=== PATIENT | female | born 1945 | race Caucasian/White ===

== ENCOUNTER 2016-11-18 11:05 | Outpatient (CLI) | payer OTHER, MEDICAID | END 2016-11-18 18:18 | disposition home or self-care (01) | LOC: SMA 11:05 | PROVIDERS: ATTEND Family Medicine | DX: Z12.31 Encounter for screening mammogram for malignant neoplasm of breast (principal) | CPT/HCPCS: G0202 ==

== ENCOUNTER 2018-02-06 11:20 | Outpatient (CLI) | payer OTHER, MEDICAID | END 2018-02-06 20:13 | disposition home or self-care (01) | LOC: SMA 11:20 | PROVIDERS: ATTEND Family Medicine | DX: Z12.31 Encounter for screening mammogram for malignant neoplasm of breast (principal) | CPT/HCPCS: 77067 ==